=== PATIENT | female | born 1960 | race Caucasian/White ===

== ENCOUNTER 2017-11-29 11:30 | Outpatient (CLI) | payer SELFPAY | END 2017-11-29 11:31 | disposition home or self-care (01) | LOC: BICRAD 11:30 | PROVIDERS: ATTEND Family Medicine | DX: Z12.31 Encounter for screening mammogram for malignant neoplasm of breast (principal); F17.200 Nicotine dependence, unspecified, uncomplicated; J18.9 Pneumonia, unspecified organism; Z80.3 Family history of malignant neoplasm of breast | CPT/HCPCS: 71046 ==

== ENCOUNTER 2018-01-28 10:46 | Observation (INO) | payer SELFPAY ==
[2018-01-28 11:24] LABS: #Basophils 0.1 thou/uL (0.0-0.2); #Eosinphils 0.2 thou/uL (0.0-0.7); #Lymphocytes 1.9 thou/uL (1.20-3.40); #Monocytes 0.5 thou/uL (0.11-0.59); #Neutrophils 6.3 thou/uL (1.40-6.50); %Basophils 0.8 % (0.0-1.0); %Eosinophils 2.2 % (0.0-10.0); %Lymphocytes 21.3 % (21.0-51.0); %Monocytes 5.7 % (0.0-10.0); %Neutrophils 70.1 % (42.0-75.0); Mean Corpuscular HGB CONC 33.6 g/dL (32.0-36.0); Mean Corpuscular Hemoglobin 31.9 pg (27.0-31.0); Mean Corpuscular Volume 94.9 fl (81.0-99.0); Mean Platelet Volume 7.7 fL (7.4-10.4); Platelet Count 274 thou/uL (130-400); RBC Distribution Width 12.6 % (11.5-14.5); Red Blood Cell (RBC) Count 5.03 mill/uL (4.20-5.40)
[2018-01-28 11:26] LABS: PTT 32.8 SEC (22.9-36.1); Prothrombin Time 13.7 SEC (12.0-14.7)
--- NOTE | 2018-01-28 11:39 | CT ---
NONCONTRAST CT HEAD: Date: 01/28/18 HISTORY: Slurred speech that began early yesterday morning. COMPARISON: None available. FINDINGS: A low density area is seen within the left frontal periventricular white matter, likely related to re mote white matter infarction. There is a low density area seen within the subcortical white matter in the right frontal centrum semiovale which is likely related to white matter infarction of indetermin ate age. There is no evidence of an acute cortical infarction, hemorrhage, mass effect, or midline sh ift. Low density area seen in the right cerebellar hemisphere likely related to remote infarction. Mi ld cerebral volume loss is present, not unexpected for patient's age. Ventricular system is normal in size, shape, and position. Visualized paranasal sinuses and mastoid air cells are clear. Calvarial s tructures are intact. IMPRESSION: 1. Small white matter infarction in the right frontal lobe centrum semiovale of indeterminate age. 2. Remote white matter infarction in the left periventricular white matter. No acute cortical infarc tion is seen. 3. Remote infarction right cerebellar hemisphere. POS: CORRINE
[2018-01-28 11:49] LABS: Troponin I Less than 0.010 ng/mL (< 0.028)
[2018-01-28 11:50] LABS: ALT (SGPT) 33 U/L (8-55); AST (SGOT) 35 U/L (5-34); Albumin 4.5 g/dL (3.5-5.0); Alkaline Phosphatase 95 U/L (40-150); Anion Gap 14 mmol/L (10-20); BUN (Urea Nitrogen) 13 mg/dL (9.8-20.1); Bilirubin, Total 0.6 mg/dL (0.2-1.2); CK (CPK) 65 U/L (29-168); Calc. Creatinine Clearance 0 mL/min (70-130); Calcium 9.8 mg/dL (7.8-10.44); Carbon Dioxide 22 mmol/L (22-29); Chloride 104 mmol/L (98-107); Estimated GFR-MDRD 72; Globulin 3.4 g/dL (2.4-3.5); Glucose 101 mg/dL (70-105); Potassium 4.3 mmol/L (3.5-5.1); Protein, Total 7.9 g/dL (6.0-8.3); Sodium 136 mmol/L (136-145)
[2018-01-28] MEDS ORDERED: Aspirin 325 MG TAB ONE (11:51)
[2018-01-28] MEDS ORDERED: hydrALAZINE 20 MG/ML VIAL SLOW IVP PRN (12:46)
[2018-01-28] MEDS ORDERED: Acetaminophen 325 MG TAB PO PRN (12:46)
[2018-01-28] MEDS ORDERED: Bisacodyl 5 MG TAB PO PRN (12:46)
[2018-01-28] MEDS ORDERED: Enalaprilat Dihydrate 1.25 MG/ML VIAL SLOW IVP PRN (12:46)
[2018-01-28] MEDS ORDERED: Labetalol HCl 100 MG/20 ML VIAL SLOW IVP PRN (12:46)
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
[2018-01-28 13:40] VITALS: BMI 22.8
--- NOTE | 2018-01-28 15:49 | ULT ---
BILATERAL CAROTID DUPLEX ULTRASOUND: HISTORY: Stroke, slurred speech. TECHNIQUE: Smith scale ultrasound with color flow and spectral Doppler imaging of the extracranial carotid artery systems was performed bilaterally. FINDINGS: There is plaque formation on either side. The peak systolic velocity in the right ICA measures 65 cm/s with an end-diastolic velocity of 18 cm/ s and a systolic ratio of 0.74. The peak systolic velocity in the left ICA measures 72 cm/s with an end-diastolic velocity of 33 cm/s and a systolic ratio of 0.87. Flow in both vertebral arteries remains antegrade. IMPRESSION: No evidence of hemodynamically significant stenosis. POS: RANDALL
--- NOTE | 2018-01-28 16:13 | MRI ---
MRI OF BRAIN NONCONTRAST: 01/28/18 HISTORY: CVA. FINDINGS: There is no evidence of acute intracranial hemorrhage or infarct. Ventricles appear normal in size, s hape and position. Small areas of encephalomalacia imply. Areas of old infarct in the right cerebella r hemisphere and left bravo radiata. There is no mass effect or shift of midline structures. Mucosal thickening is apparent within the mastoid air cells and right maxillary sinus. Centered at the right frontal calvarium is an ill-defined oval 1.1 cm lesion of increased T2 signal a nd decreased T1 signal with slight expansion of the involved calvarium. Subtle lucency was present a t this same location on recent CT. IMPRESSION: No acute intracranial abnormalities are demonstrated. Right frontal skull lesion. Cause not apparent. Please consider radionuclide bone scan to evaluate fo r active bone turnover/aggressive process at this location and to evaluate for widespread skeletal le sions. POS: CORRINE
[2018-01-28] MEDS ORDERED: Nicotine 14 MG PATCH TD SCH (21:00)
[2018-01-28] MEDS ORDERED: Atorvastatin Calcium 10 MG TAB PO SCH (21:00)
[2018-01-28 22:19] LABS: Benzodiazepine Screen Detected (NotDetected); Medtox Reader # READER 1; Opiate Screen Detected (NotDetected); THC/Cannabinoid Screen Detected (NotDetected); Tricyclic Screen Detected (NotDetected)
[2018-01-28 22:20] LABS: Amphetamine Not Detected (NotDetected); Barbiturates Screen Not Detected (NotDetected); Cocaine Metabolite Screen Not Detected (NotDetected); Medtox Control Line Valid? VALID (VALID); Methadone Not Detected (NotDetected); Methamphetamine Not Detected (NotDetected); Oxycodone Screen Not Detected (NotDetected); Phencyclidine (PCP) Not Detected (NotDetected)
[2018-01-28] MEDS ORDERED: Gabapentin 300 MG CAP PO PRN (22:31)
[2018-01-28] MEDS ORDERED: Cyclobenzaprine 10 MG TAB PO PRN (22:31)
[2018-01-29 04:57] LABS: #Basophils 0.1 thou/uL (0.0-0.2); #Eosinphils 0.2 thou/uL (0.0-0.7); #Lymphocytes 2.2 thou/uL (1.20-3.40); #Monocytes 0.6 thou/uL (0.11-0.59); #Neutrophils 3.6 thou/uL (1.40-6.50); %Basophils 1.2 % (0.0-1.0); %Eosinophils 3.2 % (0.0-10.0); %Lymphocytes 32.7 % (21.0-51.0); %Monocytes 8.5 % (0.0-10.0); %Neutrophils 54.5 % (42.0-75.0); Hemoglobin 14.7 g/dL (12.0-16.0); Mean Corpuscular HGB CONC 32.9 g/dL (32.0-36.0); Mean Corpuscular Hemoglobin 31.2 pg (27.0-31.0); Mean Corpuscular Volume 94.8 fl (81.0-99.0); Mean Platelet Volume 7.8 fL (7.4-10.4); Platelet Count 221 thou/uL (130-400); RBC Distribution Width 12.5 % (11.5-14.5); White Blood Cell (WBC) Count 6.6 thou/uL (4.8-10.8)
[2018-01-29 05:17] LABS: Anion Gap 10 mmol/L (10-20); BUN (Urea Nitrogen) 14 mg/dL (9.8-20.1); Calc. Creatinine Clearance 67 mL/min (70-130); Calcium 9.1 mg/dL (7.8-10.44); Carbon Dioxide 27 mmol/L (22-29); Cardiac Risk 2.9 (Less than 4.5); Chloride 106 mmol/L (98-107); Cholesterol 172 mg/dl (< 200 Desired); Estimated GFR-MDRD 76; Glucose 103 mg/dL (70-105); HDL Cholesterol 60 mg/dL (>60 Neg Risk); LDL Cholesterol, Calculated 85 mg/dL; Potassium 4.4 mmol/L (3.5-5.1); Sodium 139 mmol/L (136-145); Triglycerides 134 mg/dL (Less than 150)
[2018-01-29 07:57] VITALS: BP 112/67; TEMP 97.7
[2018-01-29] MEDS ORDERED: Aspirin 81 mg Enteric Coated Tablet PO SCH (09:00)
[2018-01-29] MEDS ORDERED: Enoxaparin Sodium 40 MG/0.4 ML SYRINGE SC SCH (09:00)
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
--- NOTE | 2018-01-29 17:35 | DIS ---
DATE OF ADMISSION: 01/28/2018 DATE OF DISCHARGE: 01/29/2018 PRIMARY CARE PROVIDER: Elena Grimes M.D. The patient left the hospital before being discharged on 01/29/2018. DISCHARGE DIAGNOSES: 1. Slurred speech. 2. Right frontal skull lesion. CONSULTATIONS DURING THIS HOSPITALIZATION: Neurology, Dr. Raphael. HOSPITAL COURSE: Ms. Rouse is a pleasant 57-year-old lady who was admitted to [facility] on 01/28/2018 for slurred speech, which resolved. Carotid Dopplers did not show any evid ence of hemodynamically significant stenosis. MRI of the brain showed right frontal skull lesion. [facility] radiologist recommends a bone scan to evaluate for active bone turnover/aggressive processes at [facility] and to evaluate for widespread skeletal lesions. She was seen by Neurology Service. Before the bone scan could be done, she left the hospital without being evaluated by the attending physician. She is advised [facility]. Multiple attempts were made by nursing staff to contact the patient and provide this information, but they were unable to do so.
== END 2018-01-29 09:58 | disposition left against medical advice (07) ==
LOC: ERS 10:46 → 2SE 11:57
PROVIDERS: ADMIT Internal Medicine; ATTEND Internal Medicine
DX: R47.81 Slurred speech (principal); I10 Essential (primary) hypertension; F41.9 Anxiety disorder, unspecified; F30.8 Other manic episodes; F17.210 Nicotine dependence, cigarettes, uncomplicated; G89.4 Chronic pain syndrome; Z86.73 Personal history of transient ischemic attack (TIA), and cerebral infarction without residual deficits; Z79.82 Long term (current) use of aspirin; Z79.899 Other long term (current) drug therapy
CPT/HCPCS: 36415; 70450; 70551; 80048; 80053; 80061; 80306; 82550; 82553; 83605; 84484; 85025; 85610; 85730; 93005; 93880; G0378; J1650

== ENCOUNTER 2024-06-08 20:22 | Inpatient (IN) | payer MEDICARE, SELFPAY ==
[~2024-06-08 20:22] MED LIST: Iopamidol-370 76% 500 ML MDV (1 ML CHARGE) ONE
[2024-06-08] MEDS ORDERED: hydrALAZINE 20 MG/ML VIAL ONE ×2 (20:43→23:37)
[2024-06-08] MEDS ORDERED: Aspirin Chewable 81 MG TAB ONE (20:43)
[2024-06-08 20:47] LABS: #Basophils 0.07 10x3/uL (0.0-0.2); %Basophils 0.8 % (0.0-1.0); %Eosinophils 0.7 % (0.0-10.0); %Lymphocytes 21.8 % (21.0-51.0); %Monocytes 10.9 % (0.0-10.0); %Neutrophils 65.5 % (42.0-75.0); Hematocrit 44.7 % (36.0-47.0); Hemoglobin 14.7 g/dL (12.0-16.0); Mean Corpuscular HGB CONC 32.9 g/dL (32.0-36.0); Mean Corpuscular Hemoglobin 28.7 pg (27.0-31.0); Mean Corpuscular Volume 87.1 fL (78.0-98.0); Mean Platelet Volume 10.5 fL (7.4-10.4); Platelet Count 269 10x3/uL (130-400); RBC Distribution Width 13.3 % (11.5-14.5); Red Blood Cell (RBC) Count 5.13 mill/uL (4.20-5.40)
[2024-06-08 21:00] LABS: INR-International Normal Ratio 1.1
[2024-06-08 21:01] LABS: PTT 31.7 sec (22.9-36.1)
[2024-06-08] MEDS ORDERED: Lorazepam 2 MG/ML VIAL ONE (21:08)
[2024-06-08 21:11] LABS: ALT (SGPT) 19 U/L (8-55); AST (SGOT) 27 U/L (5-34); Albumin 4.2 g/dL (3.4-4.8); Alkaline Phosphatase 83 U/L (40-110); Anion Gap 14 mmol/L (10-20); BUN (Urea Nitrogen) 12 mg/dL (9.8-20.1); Bilirubin, Total 0.8 mg/dL (0.2-1.2); Calc. Creatinine Clearance 0 mL/min (70-130); Calcium 9.5 mg/dL (7.8-10.44); Carbon Dioxide 20 mmol/L (23-31); Chloride 108 mmol/L (98-107); Estimated GFR 76; Glucose 131 mg/dL (80-115); Potassium 3.3 mmol/L (3.5-5.1); Protein, Total 7.2 g/dL (5.8-8.1); Sodium 139 mmol/L (136-145)
[2024-06-08 21:16] LABS: Troponin I 0.016 ng/mL (< 0.028)
[2024-06-08] MEDS ORDERED: Potassium Chloride 20 MEQ TAB ONE (21:17)
[2024-06-08 21:40] LABS: Amphetamine Detected (NotDetected); Barbiturates Screen Not Detected (NotDetected); Benzodiazepine Screen Not Detected (NotDetected); Cocaine Metabolite Screen Not Detected (NotDetected); Methadone Not Detected (NotDetected); Methamphetamine Detected (NotDetected); Opiate Screen Not Detected (NotDetected); Oxycodone Screen Not Detected (NotDetected); Phencyclidine (PCP) Not Detected (NotDetected); THC/Cannabinoid Screen Not Detected (NotDetected); Tricyclic Screen Not Detected (NotDetected)
[2024-06-08] MEDS ORDERED: niCARdipine 25 MG/10 ML SDV ONE (21:42)
[2024-06-09 00:41] LABS: Troponin I Less than 0.010 ng/mL (< 0.028)
[2024-06-09 00:54] VITALS: BMI 19.8
[2024-06-09] MEDS: Lorazepam 2 MG/ML VIAL SLOW IVP SCH (01:34)
[2024-06-09] MEDS: Lactated Ringer's 1,000 ML IV SCH (01:36)
[2024-06-09 02:43] LABS: #Basophils 0.11 10x3/uL (0.0-0.2); %Basophils 1.2 % (0.0-1.0); %Lymphocytes 22.4 % (21.0-51.0); %Monocytes 10.2 % (0.0-10.0); %Neutrophils 64.8 % (42.0-75.0); Hemoglobin 13.8 g/dL (12.0-16.0); Mean Corpuscular HGB CONC 32.9 g/dL (32.0-36.0); Mean Corpuscular Hemoglobin 28.9 pg (27.0-31.0); Mean Corpuscular Volume 87.9 fL (78.0-98.0); Mean Platelet Volume 10.4 fL (7.4-10.4); Platelet Count 287 10x3/uL (130-400); RBC Distribution Width 13.4 % (11.5-14.5); Red Blood Cell (RBC) Count 4.78 mill/uL (4.20-5.40)
[2024-06-09 03:11] LABS: Troponin I Less than 0.010 ng/mL (< 0.028)
[2024-06-09 03:46] LABS: Anion Gap 14 mmol/L (10-20); BUN (Urea Nitrogen) 12 mg/dL (9.8-20.1); Calc. Creatinine Clearance 48 mL/min (70-130); Calcium 9.2 mg/dL (7.8-10.44); Carbon Dioxide 18 mmol/L (23-31); Cardiac Risk 2.6 (Less than 4.5); Chloride 110 mmol/L (98-107); Cholesterol 192 mg/dl (< 200 Desired); Estimated GFR 74; Glucose 110 mg/dL (80-115); HDL Cholesterol 74 mg/dL (>60 Neg Risk); LDL Cholesterol, Calculated 103 mg/dL; Potassium 3.3 mmol/L (3.5-5.1); Sodium 139 mmol/L (136-145); Triglycerides 73 mg/dL (Less than 150)
[2024-06-09] MEDS: Nicotine 21 MG PATCH TD SCH ×2 (04:01→08:59)
[2024-06-09] MEDS: Aspirin 81 mg Enteric Coated Tablet PO SCH (08:59)
[2024-06-09] MEDS: Atorvastatin Calcium 40 MG TAB PO SCH (20:41)
[2024-06-10 04:18] LABS: #Basophils 0.06 10x3/uL (0.0-0.2); %Eosinophils 2.4 % (0.0-10.0); %Lymphocytes 36.5 % (21.0-51.0); %Monocytes 11.3 % (0.0-10.0); %Neutrophils 48.5 % (42.0-75.0); Hematocrit 39.4 % (36.0-47.0); Hemoglobin 12.8 g/dL (12.0-16.0); Mean Corpuscular HGB CONC 32.5 g/dL (32.0-36.0); Mean Corpuscular Hemoglobin 28.9 pg (27.0-31.0); Mean Corpuscular Volume 88.9 fL (78.0-98.0); Mean Platelet Volume 11.1 fL (7.4-10.4); Platelet Count 248 10x3/uL (130-400); RBC Distribution Width 13.7 % (11.5-14.5); Red Blood Cell (RBC) Count 4.43 mill/uL (4.20-5.40)
[2024-06-10] MEDS: Acetaminophen 325 MG TAB PO PRN (04:48)
[2024-06-10 05:00] LABS: Anion Gap 13 mmol/L (10-20); BUN (Urea Nitrogen) 11 mg/dL (9.8-20.1); Calc. Creatinine Clearance 50 mL/min (70-130); Calcium 8.9 mg/dL (7.8-10.44); Carbon Dioxide 22 mmol/L (23-31); Chloride 108 mmol/L (98-107); Estimated GFR 77; Glucose 96 mg/dL (80-115); Potassium 3.1 mmol/L (3.5-5.1); Sodium 140 mmol/L (136-145)
[2024-06-10] MEDS: Potassium Chloride 20 MEQ TAB PO SCH (10:02)
[2024-06-10] MEDS: Lorazepam 0.5 MG TAB PO PRN (14:49)
[2024-06-11 04:36] LABS: Anion Gap 14 mmol/L (10-20); BUN (Urea Nitrogen) 11 mg/dL (9.8-20.1); Calc. Creatinine Clearance 50 mL/min (70-130); Calcium 9.3 mg/dL (7.8-10.44); Carbon Dioxide 20 mmol/L (23-31); Chloride 109 mmol/L (98-107); Estimated GFR 77; Glucose 93 mg/dL (80-115); Potassium 3.6 mmol/L (3.5-5.1); Sodium 139 mmol/L (136-145)
[2024-06-11] MEDS: hydrALAZINE 20 MG/ML VIAL SLOW IVP PRN (15:28)
[2024-06-11] MEDS: Amlodipine 10 MG TAB PO SCH (16:12)
[2024-06-12] MEDS: Amlodipine 10 MG TAB PO SCH (09:01)
[2024-06-13 04:21] LABS: #Basophils 0.08 10x3/uL (0.0-0.2); %Eosinophils 1.6 % (0.0-10.0); %Lymphocytes 29.3 % (21.0-51.0); %Neutrophils 55.7 % (42.0-75.0); Hematocrit 45.7 % (36.0-47.0); Hemoglobin 14.6 g/dL (12.0-16.0); Mean Corpuscular HGB CONC 31.9 g/dL (32.0-36.0); Mean Corpuscular Hemoglobin 28.4 pg (27.0-31.0); Mean Corpuscular Volume 88.9 fL (78.0-98.0); Mean Platelet Volume 11.4 fL (7.4-10.4); Platelet Count 289 10x3/uL (130-400); RBC Distribution Width 13.5 % (11.5-14.5); Red Blood Cell (RBC) Count 5.14 mill/uL (4.20-5.40)
[2024-06-13 04:39] LABS: Anion Gap 14 mmol/L (10-20); BUN (Urea Nitrogen) 17 mg/dL (9.8-20.1); Calc. Creatinine Clearance 43 mL/min (70-130); Calcium 9.4 mg/dL (7.8-10.44); Carbon Dioxide 20 mmol/L (23-31); Chloride 108 mmol/L (98-107); Estimated GFR 65; Glucose 112 mg/dL (80-115); Potassium 3.5 mmol/L (3.5-5.1); Sodium 138 mmol/L (136-145)
[2024-06-13] MEDS: Carvedilol 3.125 MG TAB PO SCH (18:20)
[2024-06-14 03:45] LABS: #Basophils 0.09 10x3/uL (0.0-0.2); %Basophils 1.3 % (0.0-1.0); %Eosinophils 2.2 % (0.0-10.0); %Lymphocytes 32.8 % (21.0-51.0); %Monocytes 10.2 % (0.0-10.0); %Neutrophils 53.1 % (42.0-75.0); Hematocrit 45.1 % (36.0-47.0); Hemoglobin 14.6 g/dL (12.0-16.0); Mean Corpuscular HGB CONC 32.4 g/dL (32.0-36.0); Mean Corpuscular Hemoglobin 28.9 pg (27.0-31.0); Mean Corpuscular Volume 89.1 fL (78.0-98.0); Mean Platelet Volume 11.1 fL (7.4-10.4); Platelet Count 300 10x3/uL (130-400); RBC Distribution Width 13.3 % (11.5-14.5); Red Blood Cell (RBC) Count 5.06 mill/uL (4.20-5.40)
[2024-06-14 04:07] LABS: Anion Gap 13 mmol/L (10-20); BUN (Urea Nitrogen) 16 mg/dL (9.8-20.1); Calc. Creatinine Clearance 48 mL/min (70-130); Calcium 9.3 mg/dL (7.8-10.44); Carbon Dioxide 24 mmol/L (23-31); Chloride 105 mmol/L (98-107); Estimated GFR 74; Glucose 134 mg/dL (80-115); Potassium 3.4 mmol/L (3.5-5.1); Sodium 139 mmol/L (136-145)
[2024-06-14] MEDS: Potassium Chloride 20 MEQ TAB PO SCH (09:48)
[2024-06-14] MEDS: traMADol HCl 50 MG TAB PO PRN (10:47)
[2024-06-15] MEDS: Potassium Chloride 20 MEQ TAB PO SCH (09:51)
[2024-06-15 14:39] VITALS: BMI 19.8
[2024-06-16 17:13] VITALS: BP 160/84; TEMP 97.5
== END 2024-06-16 18:28 | DRG 65 ==
LOC: ERS 20:22 → 2SE 22:59
PROVIDERS: ADMIT Internal Medicine; ATTEND Hospitalist
DX: I63.9 Cerebral infarction, unspecified (principal); G81.94 Hemiplegia, unspecified affecting left nondominant side; I16.1 Hypertensive emergency; I10 Essential (primary) hypertension; Z90.710 Acquired absence of both cervix and uterus; F41.9 Anxiety disorder, unspecified; F32.A Depression, unspecified; F17.210 Nicotine dependence, cigarettes, uncomplicated; F15.10 Other stimulant abuse, uncomplicated; E87.6 Hypokalemia; E78.5 Hyperlipidemia, unspecified; Z71.6 Tobacco abuse counseling; Z79.82 Long term (current) use of aspirin; Z79.899 Other long term (current) drug therapy
CPT/HCPCS: 36415; 70450; 70496; 70498; 70551; 71045; 80048; 80053; 80061; 80306; 82550; 84484; 85025; 85610; 85730; 93005; 93306; 96361; 96365; 96375; 96376; J0360; J2060; J7120; Q9967